=== PATIENT | male | born 1980 | race Caucasian/White ===

== ENCOUNTER 2018-09-29 18:02 | Emergency (ER) | payer OTHER ==
[2018-09-29] MEDS ORDERED: LORazepam 2 MG/ML INJ IVP ONE (18:18)
[2018-09-29] MEDS ORDERED: NS 1,000 ML IV ONE (18:18)
--- NOTE | 2018-09-29 18:31 | EDPHY ---
H & P Stated Complaint: "tingling" from waist to head & down L groin starting about 1740 imp Time Seen by Provider: 09/29/18 18:10 HPI/ROS: Chief complaint: Numbness and tingling History of present illness: This is a 38-year-old male who presents to the emergency department for evaluation of numbness and tingling. He states he was in his usual state of health, driving to work when he started to feel numbness and tingling in the back of his head. The numbness and tingling spread to his face around his mouth, down his chest and into his abdomen as above arms. He felt his heart racing. Denies any specific precipitating factors. He denies any alleviating or aggravating factors. He denies other associated signs or symptoms including no fevers, no cold symptoms, no chest pain or trouble breathing, no nausea, vomiting or diarrhea, no weakness or paralysis, no bowel or bladder dysfunction. Does state he has been under tremendous amount of stress recently. He is taking an tcag-alf-mruqdne fat burning pill that contains caffeine. Review of systems: A 10 point review of systems was obtained and other than described above was negative - Medical/Surgical History Hx Asthma: No Hx Chronic Respiratory Disease: No Hx Diabetes: No Hx Cardiac Disease: No Hx Renal Disease: No Hx Cirrhosis: No Hx Alcoholism: No Hx HIV/AIDS: No Hx Splenectomy or Spleen Trauma: No Other PMH: denies - Social History Smoking Status: Never smoked - Physical Exam Exam: General Appearance: Alert, nontoxic. Eyes: Pupils equal and round no pallor or injection. ENT, Mouth: Mucous membranes moist. Respiratory: There are no retractions, lungs are clear to auscultation. Cardiovascular: Mildly tachycardic with regular rhythm. Radial pulses 2+ bilaterally. No carotid bruits noted. Gastrointestinal: Abdomen is soft and non tender, no masses, bowel sounds normal. Neurological: Normal speech. Alert and oriented x4. Cranial nerves 2-12 grossly intact. Strength and sensation intact and symmetrical. No pronator drift. Cerebellar testing intact using finger to nose and heel to fernandez. No meningismus. Ambulating without difficulty. Skin: Warm and dry, no rashes. Musculoskeletal: Neck is supple non tender. Extremities are symmetrical, full range of motion. Psychiatric: Patient is oriented X 3, there is no agitation. Constitutional: Initial Vital Signs Temperature (C) 36.5 C 09/29/18 18:04 Heart Rate 112 H 09/29/18 18:04 Respiratory Rate 20 09/29/18 18:04 Blood Pressure 153/104 H 09/29/18 18:04 O2 Sat (%) 100 09/29/18 18:04 O2 Delivery Mode Room Air Allergies/Adverse Reactions: No Known Allergies Allergy (Unverified 09/29/18 18:04) Home Medications: Medication Instructions Recorded NK [No Known Home Meds] 09/29/18 Medical Decision Making ED Course/Re-evaluation: Patient is discussed with my secondary supervising physician Dr. Ozzie Soto. Patient presents for evaluation of paresthesias and palpitations. He is nontoxic. He has a nonfocal neurologic exam. Blood studies and EKG are unremarkable. I suspect this is anxiety. Potentially precipitated by recent stresses at work and the fact he is using an rnrw-ais-zimjyez caffeine supplement. He is IV hydrated and given Ativan and states symptoms have resolved. Patient will be discharged home. Home care is discussed. He is to follow up with a primary care doctor for recheck. Return precautions are given. Patient voiced understanding and agreement with plan. Differential Diagnosis: Included but not limited to anxiety, electrolyte disturbances, doubtful CVA given atypical presentation and a nonfocal neurologic exam. - Data Points Laboratory Results: Laboratory Results 09/29/18 18:22 09/29/18 18:22 09/29/18 09/29/18 18:22 18:22 WBC 8.05 10^3/uL 10^3/uL (3.80-9.50) RBC 5.72 10^6/uL 10^6/uL (4.40-6.38) Hgb 17.3 g/dL g/dL (13.7-17.5) Hct 49.2 % % (40.0-51.0) MCV 86.0 fL fL (81.5-99.8) MCH 30.2 pg pg (27.9-34.1) MCHC 35.2 g/dL g/dL (32.4-36.7) RDW 12.5 % % (11.5-15.2) Plt Count 184 10^3/uL 10^3/uL (150-400) MPV 10.9 fL fL (8.7-11.7) Neut % (Auto) 74.9 % H % (39.3-74.2) Lymph % (Auto) 18.0 % % (15.0-45.0) [place] % (Auto) 4.8 % % (4.5-13.0) Eos % (Auto) 0.9 % % (0.6-7.6) Baso % (Auto) 0.5 % % (0.3-1.7) Nucleat RBC Rel Count 0.0 % % (0.0-0.2) Absolute Neuts (auto) 6.03 10^3/uL 10^3/uL (1.70-6.50) Absolute Lymphs (auto) 1.45 10^3/uL 10^3/uL (1.00-3.00) Absolute Monos (auto) 0.39 10^3/uL 10^3/uL (0.30-0.80) Absolute Eos (auto) 0.07 10^3/uL 10^3/uL (0.03-0.40) Absolute Basos (auto) 0.04 10^3/uL 10^3/uL (0.02-0.10) Absolute Nucleated RBC 0.00 10^3/uL 10^3/uL (0-0.01) Immature Gran % 0.9 % % (0.0-1.1) Immature Gran # 0.07 10^3/uL 10^3/uL (0.00-0.10) Sodium 139 mEq/L mEq/L (135-145) Potassium 4.2 mEq/L mEq/L (3.5-5.2) Chloride 105 mEq/L mEq/L (97-110) Carbon Dioxide 24 mEq/l mEq/l (22-31) Anion Gap 10 mEq/L mEq/L (6-14) BUN 16 mg/dL mg/dL (7-23) Creatinine 0.9 mg/dL mg/dL (0.7-1.3) Estimated GFR > 60 Glucose 145 mg/dL H mg/dL (70-100) Calcium 9.3 mg/dL mg/dL (8.5-10.4) Medications Given: Discontinued Medications Sodium Chloride (Ns) 1,000 mls @ 0 mls/hr IV EDNOW ONE; Wide Open PRN Reason: Protocol Stop: 09/29/18 18:19 Last Admin: 09/29/18 18:33 Dose: 1,000 mls Lorazepam (Ativan Injection) 1 mg IVP EDNOW ONE Stop: 09/29/18 18:19 Last Admin: 09/29/18 18:34 Dose: 1 mg Lorazepam (Ativan) 1 mg PO EDNOW ONE Stop: 09/29/18 19:49 Last Admin: 09/29/18 19:52 Dose: 1 mg Departure - Departure Disposition: Home, Routine, Self-Care Clinical Impression: Paresthesia Condition: Good Instructions: Paresthesia (ED), Anxiety (ED) Additional Instructions: Follow-up with a primary care doctor for continued evaluation and care I recommend you stop using pdvw-mgf-jeiyept stimulant supplements If symptoms worsen or new symptoms develop return to the emergency department for recheck Referrals: NONE *PRIMARY CARE P,. [Primary Care Provider] - As per Instructions [facility],. [Clinic] - As per Instructions
--- NOTE | 2018-09-29 18:58 | CPEKG ---
Test Reason : OPEN Blood Pressure : / mmHG Vent. Rate : 110 BPM Atrial Rate : 110 BPM P-R Int : 143 ms QRS Dur : 101 ms QT Int : 333 ms P-R-T Axes : 063 067 032 degrees QTc Int : 451 ms Sinus tachycardia Confirmed by Ozzie Soto ([id number]) on 09/29/2018 6:57:57 PM Referred By: Confirmed By:Ozzie Soto
[2018-09-29 19:02] LABS: PLATELET COUNT 184 10^3/uL (150-400)
[2018-09-29] MEDS ORDERED: LORazepam 1 MG TAB PO ONE (19:48)
[2018-09-29 20:29] VITALS: BP 116/78
== END 2018-09-29 20:28 | disposition home or self-care (01) ==
DX: R20.2 Paresthesia of skin (principal); R20.0 Anesthesia of skin; E86.9 Volume depletion, unspecified
CPT/HCPCS: 96374; J2060